=== PATIENT | female | born 2000 | race Caucasian/White ===

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

== ENCOUNTER 2020-08-26 14:36 | Emergency (ER) | payer OTHER, SELFPAY ==
[2020-08-26 15:05] VITALS: BP 131/91; PULSE 102; RESP 19; TEMP 37.1; O2SAT 99; BMI 43.5
--- NOTE | 2020-08-26 15:25 | HMH.EDUTC ---
[facility] [place] Clinical Impression: Sinusitis Qualifiers: Sinusitis location: unspecified location Chronicity: unspecified Qualified Code(s): J32.9 - Chronic sinusitis, unspecified Disposition: Home, Self-Care Condition on Discharge: Good Instructions: Sore Throat, Sinusitis, DI for Sinusitis, DI for Cough -- Adult, DI for COVID-19 (Suspected or Confirmed ), Preventing the Spread of Coronavirus Discharge Instructions Additional Instructions: *Monitor Temp, Over the counter Motrin or Tylenol as directed/as needed Tylenol every 4 hours and Motrin every 6 hours (as long as your family doctor has told you that you can take it) for fever or pain. and straight to ER if unable to lower temp less than 101.0 after medication given *Warm salt water gargles may help to soothe the throat *Throat Lozenges *Warm fluids like tea with honey may help to soothe the throat *Sleep elevated *Humidifier/Vaporizer *Flonase 2 sprays in each nostril daily but be aware that it may take 2-3 days before you notice improvement Follow up IMMEDIATELY for new or worsening symptoms or no Noticeable improvement over the next 48-72 hours. 911 for difficulty breathing or swallowing You were tested for today for COVID19 your test result should be back in the next 24-48 hours, you may call to the [facility] to see if your test results are back in the next 48 hours [phone] [facility] hours are 9am-9pm You was given a handout with instructions for Self Quarantine and Self isolation for while you wait on test results and what to do if they are positive If you are positive the Health Dept will be contacting you also Prescriptions: Benzonatate [Tessalon Perle 100mg Cap*] 100 mg PO TID PRN #30 cap PRN Reason: Cough Transmission Status: Received by [facility] Azithromycin [Z-Brodie 250mg Tab] 250 mg PO DIRECTED #6 tab Transmission Status: Received by [facility] Referrals: Owen Danielle MD [Primary Care Provider] - As needed Forms: Work/School Release Time of Disposition: 15:35 Medical Decision Making - Isaac Inquiry Pt receiving controlled substance: No Isaac was queried for this patient: No Vital Signs: 08/26/20 15:05 08/26/20 15:39 Temperature 98.8 F 98.8 F Temperature Source Oral Pulse Rate 102 H Pulse Rate [Right Brachial] 102 H Respiratory Rate 19 19 Blood Pressure 131/91 H Blood Pressure [Right Arm] 131/91 H Blood Pressure Mean [Right Arm] 104 Blood Pressure Source [Right Arm] Automatic Cuff Blood Pressure Position [Right Arm] Sitting 02 Sat by Pulse Oximetry 99 Oxygen Delivery Method Room Air Orders (Tests/Meds): ORDERS Category Date Time Status Covid-19 Nasal PCR ([facility]) Routine Lab 08/26/20 15:00 [place] [facility] [place] - General Stated complaint: covid symtoms Time Seen by Provider: 08/26/20 15:25 Mode of Arrival: Ambulatory Source of Information: Patient Limitations: No Limitations Description of Symptoms (Recalled from Triage Doc. by RN): PATIENT C/O FEVER, COUGH, HEADACHE, WEAKNESS, AND SOA SINCE TUESDAY HEENT Symptoms (Recalled from RN notes): Yes Resp Symptoms (Recalled from RN notes): Yes Skin Symptoms (Recalled from RN notes): No MS Symptoms (Recalled from RN notes): No Functional Status (Recalled from RN notes): WNL - History of Present Illness Provider Complaint: Patient states that she has not felt well for about 5 days and for the last couple of days it got worse States that she has been having sinus pressure, sore throat, cough, fever chills and body aches State that after episode of coughing she sometimes feels short of breath States that she was sent home from work yesterday due to symptoms and wanted to get tested for COVID - Related Data Home Medications Medication Instructions Recorded Confirmed bupropion HCl 300 mg 24 hr tablet, 300 mg PO [facility] 11/14/17 extended release Previous Rx's Medication Instructions Recorded Azithromycin [Z-Brodie 250mg Tab] 250 mg PO DIRECT
[2020-08-26 15:39] VITALS: BP 131/91; PULSE 102; RESP 19; TEMP 37.1; O2SAT 99
--- NOTE | 2020-08-27 10:17 | PC.NURSE ---
patient notified of positive covid results
== END 2020-08-26 15:45 | disposition home or self-care (01) ==
PROVIDERS: Emergency Provider Nurse Practitioner; PCP Internal Medicine Adolescent Medicine
DX: U07.1 COVID-19 (principal); J32.9 Chronic sinusitis, unspecified; F33.1 Major depressive disorder, recurrent, moderate; Z79.899 Other long term (current) drug therapy
CPT/HCPCS: 99202; G0463; U0003

== ENCOUNTER 2020-09-08 14:22 | Emergency (ER) | payer OTHER, SELFPAY ==
[2020-09-08 14:42] VITALS: BP 146/89; PULSE 89; RESP 18; TEMP 36.8; O2SAT 98; BMI 44.9
--- NOTE | 2020-09-08 15:00 | HMH.EDUTC ---
[facility] [place] Dis[place] Clinical Impression: Cough Disposition: Home, Self-Care Condition on Discharge: Good Instructions: Diarrhea, Acute Bronchitis, Cough, DI for COVID-19 (Suspected or Confirmed ) Additional Instructions: ? Continue antibiotic today. Be sure to complete entire prescription even if feeling better ? Monitor temp. Tylenol every 4 hours as needed and / or ibuprofen every 6 hours as needed ( As long as your primary care physician has told you that it ok to take both. For fever/aches/pains ER if no less than 101 despite Tylenol or Motrin ? Humidifier/vaporizer or hot steamy shower ? Inhaler every 4-6 hours as needed like we discussed. If unsure how to use it, ask pharmacist to demonstrate how. Should help open airways and improve cough, wheezing, and shortness of breath ? Mucinex during the day for your cough and cough suppressant only at night. Be sure to drink lots of water. Insurance may not cover a prescriptions for mucinex. Might be cheaper to get 400mg tablets and take 2 tablet in the morning, mid-day and evening with lots of water. Follow up IMMEDIATELY for new or worsening of symptoms OR no noticeable improvement over the next 48-72 hours. 911 immediately for any life threatening symptoms such as chest pain or difficulty breathing Referrals: Owen Danielle MD [Primary Care Provider] - As needed Forms: Work/School Release Time of Disposition: 15:10 Medical Decision Making - Isaac Inquiry Pt receiving controlled substance: No Isaac was queried for this patient: No Vital Signs: 09/08/20 14:42 09/08/20 15:11 Temperature 98.2 F 98.2 F Temperature Source Oral Oral Pulse Rate 89 Pulse Rate [Right Brachial] 89 Respiratory Rate 18 18 Blood Pressure 146/89 H Blood Pressure [Right Arm] 146/89 H Blood Pressure Mean [Right Arm] 108 Blood Pressure Source Automatic Cuff Blood Pressure Source [Right Arm] Automatic Cuff Blood Pressure Position Sitting Blood Pressure Position [Right Arm] Sitting 02 Sat by Pulse Oximetry 98 Oxygen Delivery Method Room Air Room Air Medical Decision Narrative: Patient states that she is feeling much better after dx with COVID states that she tried going back to work today but thinks she needs a couple more days off State that she got a little winded while walking around and it made her cough States that she is being treated at this time for bronchitis and was given inhaler and zpack which she is currently taking and feeling better since starting States that work sent her home and told her she had to get a work note so she came in to get a work note State that she is also still having some diarrhea off and on with cramping but that is better now too [facility] [place] HPI - General Stated complaint: covid +, soa, congestion Time Seen by Provider: 09/08/20 15:00 Source of Information: Patient Limitations: No Limitations Description of Symptoms (Recalled from Triage Doc. by RN): PT TESTED POSITIVE FOR COVID 14 DAYS AGO. SUPPOSE TO GO BACK TO WORK TOMORROW BUT STILL HAVING SYMPTOMS' SOA, CHEST PAIN, ABDOMINAL PAIN. HEENT Symptoms (Recalled from RN notes): No Resp Symptoms (Recalled from RN notes): Yes Skin Symptoms (Recalled from RN notes): No MS Symptoms (Recalled from RN notes): No Functional Status (Recalled from RN notes): WNL - History of Present Illness Provider Complaint: Patient states that she recently was +COVID states that she was seen by Dr Stokes office last week and given inhaler and zpack States that she went back to work today and she started coughing so they made her leave work and told her she needed a note States that she is feeling better but still has that burning at times in her throat and chest when she coughs and gets winded when she is up moving around alot States that she thinks she should have waited a couple more days before going back - Related Data Home Medications Medication Instructions Recorded Confirmed bupropion HCl 300 mg 24 hr tablet, 300 mg PO
[2020-09-08 15:11] VITALS: BP 146/89; PULSE 89; RESP 18; TEMP 36.8; O2SAT 98
== END 2020-09-08 15:15 | disposition home or self-care (01) ==
PROVIDERS: Emergency Provider Nurse Practitioner; PCP Internal Medicine Adolescent Medicine
DX: R05 Cough (principal); Z86.16 Personal history of COVID-19
CPT/HCPCS: 99202; G0463

== ENCOUNTER 2021-03-02 11:56 | Emergency (ER) | payer OTHER, SELFPAY ==
[2021-03-02 11:57] VITALS: BP 162/98; PULSE 94; RESP 16; TEMP 36.7; O2SAT 97; BMI 45.1
--- NOTE | 2021-03-02 12:50 | HMH.EDUTC ---
[facility] – [place] Disposition Clinical Impression: UTI (urinary tract infection) Qualifiers: Urinary tract infection type: site unspecified Hematuria presence: with hematuria Qualified Code(s): N39.0 - Urinary tract infection, site not specified Disposition: Home, Self-Care Condition on Discharge: Good Instructions: Urinary Tract Infection, Urine Culture, DI for Urinary Tract Infection (UTI), Phenazopyridine Additional Instructions: Drink plenty of fluids. Take tylenol or ibuprofen for pain or fever. Take the medications as directed. Follow up with your regular doctor. GO TO THE ER FOR ANY WORSENING SYMPTOMS The pyridium will make your urine turn orange, this is an expected side effect. It will stain your clothes if it comes into contact with them. Prescriptions: Ondansetron [Zofran 4mg ODT] 4 mg PO Q8HP PRN #12 tab PRN Reason: Nausea Transmission Status: Received by [facility] Sulfamethoxazole/Trimethoprim [Bactrim DS tablet] 1 each PO BID 7 Days #14 tab Transmission Status: Received by [facility] Fluconazole [Diflucan 150mg tab] 150 mg PO ONCE #1 tab Transmission Status: Received by [facility] Phenazopyridine HCl [Pyridium 200mg Tablet] 200 pow PO TID #6 tab Transmission Status: Received by [facility] Referrals: Owen Danielle MD [Primary Care Provider] - Forms: Work/School Release Time of Disposition: 12:55 Medical Decision Making - Medical Records Medical records reviewed: No: I reviewed the patient's medical records. - Isaac Inquiry Pt receiving controlled substance: No Vital Signs: 03/02/21 11:57 03/02/21 13:04 Temperature 98.1 F 98.2 F Temperature Source Oral Oral Pulse Rate 90 Pulse Rate [Right] 94 H Respiratory Rate 16 16 Blood Pressure 158/74 H Blood Pressure [Right Arm] 162/98 H Blood Pressure Mean [Right Arm] 119 Blood Pressure Source Automatic Cuff Blood Pressure Source [Right Arm] Automatic Cuff Blood Pressure Position Sitting Blood Pressure Position [Right Arm] Sitting 02 Sat by Pulse Oximetry 97 Oxygen Delivery Method Room Air Room Air - Lab Data Lab results reviewed: Yes: I reviewed the patient's lab results. Lab Results 03/02/21 12:40: Urine Color Yellow, Urine Appearance Clear, Urine pH 6.0, Ur Specific [place] 1.025, Urine Protein Negative, Urine Glucose (UA) Negative, Urine Ketones Negative, Urine Blood 3+, Urine Nitrate Negative, Urine Bilirubin Negative, Urine Urobilinogen 0.2, Ur Leukocyte Esterase 1+ A Orders (Tests/Meds): ORDERS Category Date Time Status Urine Culture Stat Micro 03/02/21 12:20 Received [facility] [place] HPI - General Stated complaint: possible uti Time Seen by Provider: 03/02/21 12:51 Mode of Arrival: Ambulatory Source of Information: Patient Limitations: No Limitations Description of Symptoms (Recalled from Triage Doc. by RN): pt advises she thinks she has a UTI. Advises she had burning and pain that started Tuesday HEENT Symptoms (Recalled from RN notes): No Resp Symptoms (Recalled from RN notes): No Skin Symptoms (Recalled from RN notes): No MS Symptoms (Recalled from RN notes): No Functional Status (Recalled from RN notes): na - History of Present Illness Provider Complaint: She states that for the past 2 days, she has had low back pain, burning with urination and urinary urgency and frequency. She denies any fever, but she has had some chills. She does get uti's occasionally and that is what she feels like is happening now. - Related Data Home Medications Medication Instructions Recorded Confirmed bupropion HCl 300 mg 24 hr tablet, 300 mg PO QA 11/14/17 extended release Previous Rx's Medication Instructions Recorded Azithromycin [Z-Brodie 250mg Tab] 250 mg PO DIRECTED #6 tab 08/26/20 Benzonatate [Tessalon Perle 100mg 100 mg PO TID PRN #30 cap 08/26/20 Cap*] Fluconazole [Diflucan 150mg tab] 150 mg PO ONCE #1 tab 03/02/21 Ondansetron [Zofran 4mg OD
[2021-03-02 13:04] VITALS: BP 158/74; PULSE 90; RESP 16; TEMP 36.8; O2SAT 98
[2021-03-02 17:59] LABS: Apearance,Urine Clear (Clear); Bilirubin,Urine Negative (Negative); Blood, Urine 3+ (Negative); Color,Urine Yellow (Yellow); Glucose,Urine (UA) Negative (Negative); Ketones,Urine Negative (Negative); Protein,Urine Negative (Negative); Specific Gravity, Urine 1.025 (1.005-1.030); UTC Leukocyte Esterase,Urine 1+ (Negative); UTC Nitrate,Urine Negative (Negative); Urobilinogen,Urine 0.2 EU/dl (0.2)
== END 2021-03-02 13:06 | disposition home or self-care (01) ==
PROVIDERS: Emergency Provider Nurse Practitioner Family; PCP Internal Medicine Adolescent Medicine
DX: N39.0 Urinary tract infection, site not specified (principal); F33.1 Major depressive disorder, recurrent, moderate
CPT/HCPCS: 81003; 87086; 87088; 87186; 99202; G0463

== ENCOUNTER 2021-05-26 17:58 | Emergency (ER) | payer OTHER, SELFPAY ==
[2021-05-26 19:16] VITALS: BP 141/86; PULSE 77; RESP 19; TEMP 36.8; O2SAT 98; BMI 46.3
--- NOTE | 2021-05-26 19:32 | HMH.EDUTC ---
[facility] [place] Dis[place] Clinical Impression: Otitis externa Qualifiers: Otitis externa type: unspecified type Chronicity: unspecified Laterality: left Qualified Code(s): H60.92 - Unspecified otitis externa, left ear Disposition: Home, Self-Care Condition on Discharge: Good Instructions: Otitis Externa, DI for Otitis Externa, Ofloxacin Otic Additional Instructions: Use drops as prescribed Follow up with Family Doctor if needed Straight to ER if any life threatening symptoms Return if needed Over the counter Mortin and/or Tylenol for fever and pain Prescriptions: Ofloxacin [Floxin 0.3% OTIC Solution 5mL] 5 drops EAR-LEFT BID 7 Days #5 ml Transmission Status: Pending to [id number] Referrals: Owen Danielle MD [Primary Care Provider] - As needed Time of Disposition: 19:39 Medical Decision Making - Isaac Inquiry Pt receiving controlled substance: No Isaac was queried for this patient: No Vital Signs: 05/26/21 19:16 Temperature 98.3 F Temperature Source Oral Pulse Rate [Left Brachial] 77 Respiratory Rate 19 Blood Pressure [Left Arm] 141/86 H Blood Pressure Mean [Left Arm] 104 Blood Pressure Source [Left Arm] Automatic Cuff Blood Pressure Position [Left Arm] Sitting 02 Sat by Pulse Oximetry 98 Oxygen Delivery Method Room Air Medical Decision Narrative: Patient states that she has taken Ofloxacin before without complication or reactions [facility] [place] HPI - General Stated complaint: Left ear pain Time Seen by Provider: 05/26/21 19:32 Mode of Arrival: Ambulatory Source of Information: Patient Limitations: No Limitations Description of Symptoms (Recalled from Triage Doc. by RN): C/O left earache since last night HEENT Symptoms (Recalled from RN notes): Yes (rt ear pain) Resp Symptoms (Recalled from RN notes): No Skin Symptoms (Recalled from RN notes): No MS Symptoms (Recalled from RN notes): No Functional Status (Recalled from RN notes): n/a - History of Present Illness Provider Complaint: Patient states that she got some water in her left ear several days ago and now she feels like she may have swimmers ear again and having pain so she came in to get it checked - Related Data Previous Rx's Medication Instructions Recorded norgestimate 0.25 mg-ethinyl 1 tab PO DAILY #28 tab 05/14/21 estradiol 35 mcg tablet Ofloxacin [Floxin 0.3% OTIC 5 drops EAR-LEFT BID 7 Days #5 ml 05/26/21 Solution 5mL] Allergies Allergy/AdvReac Type Severity Reaction Status Date / Time neomycin [NEOMYCIN] Allergy Unknown Verified 05/14/21 10:03 polymyxin B [POLYMYXIN B] Allergy Unknown Verified 05/14/21 10:03 colistin Allergy Verified 05/14/21 10:03 [From Cortisporin-TC] hydrocortisone Allergy Verified 05/14/21 10:03 [From Cortisporin-TC] Penicillins Allergy Verified 05/14/21 10:03 thonzonium bromide Allergy Verified 05/14/21 10:03 [From Cortisporin-TC] - Worker's Comp Is this a Worker's Comp case?: No [facility] History - Hepatitis A Screen Drug use history?: No High risk sexual behaviors?: No History of sexually transmitted infection?: No Currently employed?: No Childcare worker?: No Do you have indoor plumbing?: Yes Do you have electricity?: Yes Attestation statement:: This patient has been screened for Hepatitis A risk factors. I have reviewed the patient's past medical history: Yes Medical History: Reports:: Depression Denies:: Anxiety, Asthma, Chronic Obstructive Pulmonary Disease (COPD), Diabetes Mellitus Type 1, Diabetes Mellitus Type 2, Hyperlipidemia, Hypertension Laterality Cases: Bilateral: Myringotomy (Ear Tubes), Tonsillectomy Other Surgeries: Yes: No Previous Surgery Amputation: No Fractures: No - Social History Smoking Status: Never smoker Alcohol Intake: never Alcohol Intake Frequency:: other Substance Use Type: denies use Occupational Status: employed - Psychiatric History Pschychiatric History:: Reports:: Depression Denies:: Anxiety Family Hx:: Cancer R
[2021-05-26 19:45] VITALS: BP 141/86; PULSE 77; RESP 19; TEMP 36.8; O2SAT 98
== END 2021-05-26 19:45 | disposition home or self-care (01) ==
PROVIDERS: Emergency Provider Nurse Practitioner; PCP Internal Medicine Adolescent Medicine
DX: H60.92 Unspecified otitis externa, left ear (principal); F33.1 Major depressive disorder, recurrent, moderate
CPT/HCPCS: 99202; G0463

== ENCOUNTER 2022-10-05 17:30 | Emergency (ER) | payer OTHER, SELFPAY ==
[2022-10-05 17:32] VITALS: BP 188/108; PULSE 114; RESP 18; TEMP 36.8; O2SAT 100; BMI 51.5
--- NOTE | 2022-10-05 17:38 | CT_ITS ---
PROCEDURE INFORMATION: Exam: CT Abdomen And Pelvis With Contrast Exam date and time: 10/05/2022 6:57 PM Age: 22 years old Clinical indication: Abdominal pain; Localized; Patient HX: Lt umbilical region pain x 4 hours w slight nausea. TECHNIQUE: Imaging protocol: Computed tomography of the abdomen and pelvis with contrast. Total images: 370 Radiation optimization: All CT scans at this facility use at least one of these dose optimization techniques: automated exposure control; mA and/or kV adjustment per patient size (includes targeted exams where dose is matched to clinical indication); or iterative reconstruction. Contrast material: ISOVUE; Contrast volume: 370 ml; Contrast route: IV; REPORTING DATA: Count of CT and Cardiac NM exams in prior 12 months: This patient has received 0 known CTs and 0 known cardiac nuclear medicine studies in the 12 months prior to the current study. COMPARISON: No relevant prior studies available. FINDINGS: Lungs: 13 mm calcified left lower lobe granuloma/hamartoma. Lung bases are otherwise clear. Heart: Normal heart size. Liver: Mild hepatomegaly. Normal liver contour and attenuation. No mass. Gallbladder and bile ducts: Normal. No calcified stones. No ductal dilation. Pancreas: 18 mm isodense nodule slightly peripheral to the pancreatic head, axial image 49, resembles adjacent pancreatic tissue. Spleen: Nonenlarged spleen with adjacent accessory splenule. Adrenal glands: Normal. No mass. Kidneys and ureters: Unremarkable right kidney. 4 mm nonobstructing upper pole left renal calculus. 17 mm upper pole left renal cyst. No hydronephrosis or perinephric fluid. No ureteral stones. Stomach and bowel: Unremarkable stomach and duodenum. No ileus or bowel obstruction. Small bowel is within normal limits. Unremarkable colon and rectum. Appendix: No evidence for appendicitis. Intraperitoneal space: Hazy density at the mesenteric root extending to the pancreas. No ascites. No free air. Vasculature: Right pelvic phleboliths. Abdominal aorta is normal in caliber. Major abdominal vessels enhance appropriately. Lymph nodes: Mildly prominent bilateral inguinal lymph nodes most likely reactive/postinflammatory. Scattered mildly prominent mesenteric root lymph nodes. Urinary bladder: Unremarkable as visualized. Reproductive: Physiologic uterus and ovaries. Bones/joints: No acute osseous abnormality. Mild degenerative changes bilateral SI joints. Straightened lumbar lordosis. Mild degenerative changes thoracic spine. Soft tissues: Focal diastasis of the rectus fascia at the umbilicus. Tiny fat containing umbilical hernia. IMPRESSION: 1. Mild hazy opacity at the mesenteric root may reflect acute mesenteric panniculitis. Cannot exclude coexisting pancreatitis. Please correlate with lipase. 2. Prominent mesenteric root lymph nodes implying mesenteric adenitis. 3. 4 mm nonobstructing left renal calculus. 4. 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 5. 13 mm benign calcified left lower lobe granuloma/hamartoma. COMMENTS: Consistent with the [employer]'s Incidental Findings Committee white paper (J Am Mario Radiol 2018): Any incidental renal lesion less than 1 cm or classified as too small to characterize, or any incidental cystic renal lesion characterized as simple-appearing, is likely benign. No follow-up imaging is recommended for these lesions per consensus recommendations based on imaging criteria.
[2022-10-05 17:40] VITALS: BP 188/108; PULSE 106; O2SAT 100
--- NOTE | 2022-10-05 17:50 | HMH.EDGENADL ---
Discharge Plan Disposition Patient Disposition: Home, Self-Care Prescriptions Prescriptions: New oxycodone 5 mg tablet 5 mg PO Q8H PRN (Reason: pain) Qty: 6 0RF ondansetron 4 mg tablet,disintegrating 4 mg PO Q8H PRN (Reason: Nausea) Qty: 15 0RF No Action norgestimate-ethinyl estradiol [Sprintec (28)] 0.25-35 mg-mcg tablet 1 tab PO DAILY Referrals Follow up/Referrals: Owen Danielle MD [Primary Care Provider] - See instructions Activity Restrictions/Add. Instructions Additional Instructions/Restrictions: Take ibuprofen every 8 hours 400 mg for pain follow-up with your primary care physician within the next few days for reexamination. Return the emergency department for worsening pain vomiting or any other concerns within the next 8 hours Clinical Impressions Clinical Impression: Panniculitis Instructions Patient Instructions: DI for Acute Abdominal Pain Discharge ED Provider: Maynor Lepe General Adult HPI General Chief complaint: Abdominal Pain Stated complaint: abd pain, nausea Time Seen by Provider: 10/05/22 17:30 Mode of Arrival: Ambulatory Source of Information: Patient Limitations: No Limitations Description of Symptoms (Recalled from ER Triage Doc. by RN): 22 F presents from home with acute LUQ abdominal pain that began around 11 AM this date. Patient took antacid around this time without relief of symptoms. Patient also reports nausea, but denies fever, chills, vomiting, or chest pain. History of Present Illness HPI narrative: 22-year-old female with history of PCOS presents with left upper quadrant pain for 1 day that began around 11 AM. She took an antacid but it did get better pain is constant dull nonradiating. No dysuria or hematuria. Recently had. 3 days ago. She reports nausea but denies fever chills vomiting chest pain no headache. Pain is not associated with eating Related Data Home Medications Medication Instructions Recorded Confirmed norgestimate 0.25 mg-ethinyl 1 tab PO DAILY control 10/05/22 10/05/22 estradiol 35 mcg tablet (Sprintec (28)) Previous Rx's Medication Instructions Recorded ondansetron 4 mg disintegrating 4 mg PO Q8H PRN Nausea #15 tabs 10/05/22 tablet oxycodone 5 mg tablet 5 mg PO Q8H PRN pain #6 tabs 10/05/22 Allergies Allergy/AdvReac Type Severity Reaction Status Date / Time neomycin [NEOMYCIN] Allergy Unknown Verified 08/10/21 08:36 polymyxin B [POLYMYXIN B] Allergy Unknown Verified 08/10/21 08:36 colistin Allergy Verified 08/10/21 08:36 [From Cortisporin-TC] hydrocortisone Allergy Verified 08/10/21 08:36 [From Cortisporin-TC] Penicillins Allergy Verified 08/10/21 08:36 thonzonium bromide Allergy Verified 08/10/21 08:36 [From Cortisporin-TC] [facility] Disclaimer: The information contained in this section may have been updated after the patient was seen, as this information can be updated by other users. Social History Smoking Status: Never smoker alcohol intake: never substance use type: denies use current occupational status: employed Travel in the last 8 weeks: None ROS Obtained: Yes All systems reviewed & no additional complaints except as documented Constitutional Constitutional: Denies fatigue and Denies headache(s) Eyes Eyes: Denies dry eyes ENT Ears, Nose, Mouth, and Throat: Denies headache(s) Cardiovascular Cardiovascular: Denies dyspnea Respiratory Respiratory: Denies dyspnea and Denies wheezing Gastrointestinal Gastrointestingal: Denies coffee ground emesis Genitourinary Female Genitourinary: Denies hematuria Musculoskeletal Musculoskeletal: Denies joint stiffness Integumentary/Breasts Skin/Breast: Denies rash Neurologic Neurologic: Denies headache(s) Endocrine Endocrine: Denies fatigue Hematologic/Lymphatic Henatologic/Lymphatic: Denies easy bruising Allergic/Immunologic Allergic/Immunologic: Denies wheezing Physical Exam General General appeara
[2022-10-05 17:58] LABS: Microscopic, Urine URINE MICROSCOPIC (MICROSCOPIC)
[2022-10-05 18:01] LABS: Appearance,Urine CLEAR (Clear); Bilirubin,Urine Negative (Negative); Blood, Urine Negative (Negative); Color,Urine YELLOW (Yellow); Glucose,Urine (UA) Negative (Negative); Ketones,Urine Negative (Negative); Leukocyte Esterase,Urine Negative (Negative); Nitrate,Urine Negative (Negative); Protein,Urine TRACE (Negative); Specific Gravity, Urine 1.025 (1.005-1.030); Urobilinogen,Urine 0.2 EU/dl (0.2)
[2022-10-05 18:10] LABS: Chloride 95 mmol/L (98-107); Potassium 3.7 mmoL/L (3.5-5.1); Sodium 138 mmol/L (136-145)
[2022-10-05 18:11] LABS: Basophils # 0.1 K/mm3 (0-0.2); Basophils % 0.6 % (0.1-2.0); Eosinophils # 0.1 K/mm3 (0.0-0.4); Eosinophils % 0.5 % (0.1-12.0); Hemoglobin 13.3 g/dL (12.2-16.2); Lymphocytes # 2.1 K/mm3 (0.7-4.5); Lymphocytes % 11.9 % (10-50); Mean Corpuscular HGB Conc 31.6 g/dL (31.8-35.4); Mean Corpuscular Hemoglobin 23.8 pg (27.0-31.2); Mean Corpuscular Volume 75.2 fl (81-99); Mean Platelet Volume 7.9 fl (7.4-10.4); Monocytes # 0.6 K/mm3 (0.1-1.0); Monocytes % 3.3 % (1.7-9.3); Neutrophils # 14.9 K/mm3 (1.8-7.8); Neutrophils % 83.6 % (37.0-80.0); Platelet Count 409 K/mm3 (142-424); Red Blood Count 5.58 M/mm3 (4.20-5.40); Red Cell Distribution Width 15.8 % (11.5-17.5); White Blood Count 17.8 K/mm3 (4.8-10.8)
[2022-10-05 18:12] LABS: Alanine Aminotransferase 41 U/L (12-78); Aspartate Amino Transferase 38 U/L (14-36); Blood Urea Nitrogen 11 mg/dl (7-17); Creatinine Clearance Estimated 130 mL/min (50-200); Estimated Glomerular Filt Rate 123 ml/min (>60); GFR (African American) 149 ML/MIN (>60)
[2022-10-05 18:13] LABS: Albumin Level 4.5 g/dl (3.5-5.0); Albumin/Globulin Ratio 1.2 (1.1-1.8); Alkaline Phosphatase 72 U/L (38-126); Anion Gap 18.7 mEq/L (5-15); Bilirubin,Total 0.2 mg/dl (0.2-1.3); Calcium 9.6 mg/dl (8.4-10.2); Carbon Dioxide 28 mmol/L (22.0-30.0); Globulin 3.7 g/dL (1.3-3.2); Glucose 103 mg/dl (74-100); Lipase 50 U/L (23-300); Total Protein,Serum 8.2 g/dl (6.3-8.2)
[2022-10-05 18:14] LABS: MANUAL DIFFERENTIAL MANUAL DIFFERENTIAL (MANUAL DIFF)
[2022-10-05 18:19] LABS: Bacteria,Urine Trace /lpf; RBC,Urine Occasional #/hpf (0-3); WBC,Urine Occasional #/hpf (0-3)
[2022-10-05 18:40] LABS: Eosinophils % 5 % (0-3); Lymphocytes % 9 % (10-50); Monocytes % 3 % (2-9); Neutrophils % 82 % (42-76); Total Cells Counted 100
[2022-10-05 18:41] LABS: Anisocytosis 1+; Platelet Estimate Slight Increase; Poikilocytosis 1+
[2022-10-05 18:42] LABS: Polychromasia 1+
[2022-10-05 20:01] VITALS: BP 165/80; PULSE 81; RESP 17; TEMP 36.8; O2SAT 99
[2022-10-05 20:02] LABS: Lactic Acid 2.2 mmol/L (0.7-2.1)
[2022-10-05 23:58] LABS: HCG Qualitative, Serum Negative (Negative)
== END 2022-10-05 20:01 | disposition home or self-care (01) ==
PROVIDERS: Emergency Provider Emergency Medicine; PCP Internal Medicine Adolescent Medicine
DX: R10.12 Left upper quadrant pain (principal); M79.3 Panniculitis, unspecified; E28.2 Polycystic ovarian syndrome
CPT/HCPCS: 36415; 74177; 80053; 81001; 83605; 83690; 84703; 85007; 85025; 96361; 96374; 99285; Q9967

== ENCOUNTER 2023-10-21 08:06 | Emergency (ER) | payer SELFPAY ==
--- NOTE | 2023-10-21 08:19 | ED_ITS ---
Discharge Plan Disposition Patient Disposition: Home, Self-Care Condition: Good Prescriptions Prescriptions: New azithromycin [Zithromax Z-Brodie] 250 mg tablet See Rx Instructions .ROUTE .COMPLEX Qty: 6 0RF Rx Instructions: For 250 mg dose pack: take 500 mg today (day 1), then 250 mg for 4 days (days 2-5) lbkrhwzjvvqmsvj-dwglwotfb-DE [Bromfed DM] 2-30-10 mg/5 mL syrup 5 - 10 ml PO Q4H PRN (Reason: Cough) Qty: 240 0RF albuterol sulfate [Ventolin HFA] 90 mcg/actuation HFA aerosol inhaler 2 puff inhalation QIDP PRN (Reason: Wheezing) Qty: 1 0RF No Action norgestimate-ethinyl estradiol [Sprintec (28)] 0.25-35 mg-mcg tablet 1 tab PO DAILY Referrals Follow up/Referrals: Owen Danielle MD [Primary Care Provider] - See instructions Activity Restrictions/Add. Instructions Additional Instructions/Restrictions: Rest, fluids Clinical Impressions Clinical Impression: Sinusitis Stand Alone Forms Stand Alone Forms: Work/School Release Instructions Patient Instructions: DI for Sinusitis Discharge ED Provider: Frances Boyle [facility] [place] HPI General Stated complaint: cough, SOA, runny nose, Pain while breathing Time Seen by Provider: 10/21/23 08:31 History of Present Illness Provider Complaint: Sore throat, cough X 4 days. Sore throat getting worse. Denies ear pain. Cough mostly non productive. No vomiting or diarrhea. No rash. No fever. Onset (ago): day(s) (4) Relieving factors: none Exacerbating factors: none Associated symptoms: cough and shortness of breath Treatments prior to arrival: none Related Data Home Medications Medication Instructions Recorded Confirmed norgestimate 0.25 mg-ethinyl 1 tab PO DAILY control 10/05/22 10/21/23 estradiol 35 mcg tablet (Sprintec (28)) Previous Rx's Medication Instructions Recorded albuterol sulfate 90 mcg/actuation 2 puff inhalation QIDP PRN 10/21/23 aerosol inhaler (Ventolin HFA) Wheezing #1 ea azithromycin 250 mg tablet See Rx Instructions PO .COMPLEX #6 10/21/23 (Zithromax Z-Brodie) tabs gtbhgxwfxagnwly-gblzinexxpswbmh-EI 5 - 10 ml PO Q4H PRN Cough #240 mL 10/21/23 2 mg-30 mg-10 mg/5 mL oral syrup (Bromfed DM) Allergies Allergy/AdvReac Type Severity Reaction Status Date / Time neomycin [NEOMYCIN] Allergy Unknown Verified 08/10/21 08:36 polymyxin B [POLYMYXIN B] Allergy Unknown Verified 08/10/21 08:36 colistin Allergy Verified 08/10/21 08:36 [From Cortisporin-TC] hydrocortisone Allergy Verified 08/10/21 08:36 [From Cortisporin-TC] Penicillins Allergy Verified 08/10/21 08:36 thonzonium bromide Allergy Verified 08/10/21 08:36 [From Cortisporin-TC] [facility] Disclaimer: The information contained in this section may have been updated after the patient was seen, as this information can be updated by other users. Social History Smoking Status: Never smoker alcohol intake: never substance use type: denies use current occupational status: employed Travel in the last 8 weeks: None ROS Obtained: Yes All systems reviewed & no additional complaints except as documented ENT Ears, Nose, Mouth, and Throat: Reports sore throat Cardiovascular Cardiovascular: Reports dyspnea Respiratory Respiratory: Reports dyspnea Physical Exam General General appearance: alert and in no apparent distress Head Head exam: atraumatic, normocephalic and normal inspection Eye Eye exam: Present normal appearance, PERRL and EOMI ENT ENT exam: Present normal exam, normal oropharynx, mucous membranes moist and normal external ear exam Expanded ENT Exam TM/Canal exam: Bilateral TM: effusion (scarring) Nose exam: Present sinus tenderness Throat exam: Present tonsillar erythema and other (PND) Neck Neck exam: Present normal inspection, full ROM and trachea midline; Absent meningismus or lymphadenopathy Chest Chest inspection: Present normal inspection and symmetric chest wall rise; Absent tenderness Respiratory Respiratory exam: Present normal lung sounds bilaterally; Absent respiratory distress Cardiovascular Cardiovascular exam: Present regular rate and normal rhythm; Absent JVD Abdominal Exam Abdominal exam: Present soft and normal bowel sounds; Absent distention, tenderness or guarding Extremities Exam Extremities exam: Present normal inspection, full ROM and normal capillary refill; Absent calf tenderness Back Exam Back exam: Present normal inspection; Absent tenderness Neurological Exam Neurological exam: Present alert and oriented X3 Psychiatric Psychiatric exam: Present normal affect and normal mood Skin Skin exam: Present warm, dry, intact and normal color Lymphatic Lymphatic Findings: no adenopathy Medical Decision Making Isaac Inquiry Pt receiving controlled substance: No Lab Data Lab results reviewed: Yes I reviewed the patient's lab results.
[2023-10-21 08:20] VITALS: BP 161/89; PULSE 109; RESP 20; TEMP 36.8; O2SAT 96; BMI 54.1
[2023-10-21 08:45] LABS: UTC Strep Screen (Rapid) Negative (Negative)
[2023-10-21 08:46] VITALS: BP 161/89; PULSE 109; RESP 20; TEMP 36.8; O2SAT 96
== END 2023-10-21 08:49 | disposition home or self-care (01) ==
PROVIDERS: Emergency Provider Physician Assistant; PCP Internal Medicine Adolescent Medicine
DX: J01.90 Acute sinusitis, unspecified (principal); R07.0 Pain in throat; R05.9 Cough, unspecified
CPT/HCPCS: 87880; 99212; 99214; G0463

== ENCOUNTER 2024-12-31 14:53 | Outpatient (CLI) | payer OTHER, SELFPAY ==
[2024-12-31 15:13] LABS: Hematocrit 38.5 % (37.0-47.0); Hemoglobin 11.8 g/dL (12.2-16.2); Immature Granulocytes % 0.3 %; Mean Corpuscular HGB Conc 30.6 g/dL (31.8-35.4); Mean Corpuscular Hemoglobin 22.3 pg (27.0-31.2); Mean Corpuscular Volume 72.6 fl (81-99); Nucleated Red Blood Cells % 0 %; Platelet Count 395 K/mm3 (142-424); Red Blood Count 5.30 M/mm3 (4.20-5.40); Red Cell Distribution Width-SD 39.8 fL; White Blood Count 11.3 K/mm3 (4.8-10.8)
--- NOTE | 2024-12-31 15:19 | XR_ITS ---
FINAL REPORT CLINICAL HISTORY: HIP PAIN COMPARISON: None FINDINGS: LEFT HIP: Two views of the left hip with an AP view of the pelvis demonstrate no acute fracture or dislocation. The joint spaces appear normal. The visualized bony structures are well aligned. No soft tissue abnormality is seen. IMPRESSION: No acute bony abnormality. Reviewed, Interpreted and Dictated by Brandon Rebollar MD Transcribed by Gisselle Arevalo Authenticated and [facility]
--- NOTE | 2024-12-31 15:19 | XR_ITS ---
FINAL REPORT CLINICAL HISTORY: . COMPARISON: None FINDINGS: RIGHT HIP Two views of the right hip demonstrate no acute fracture or dislocation. The joint spaces appear normal. The visualized bony structures are well aligned. No soft tissue abnormality is seen. IMPRESSION: No acute bony abnormality. Reviewed, Interpreted and Dictated by Brandon Rebollar MD Transcribed by Gisselle Arevalo Authenticated and [facility]
[2024-12-31 16:10] LABS: Albumin Level 4.4 g/dl (3.5-5.0); Chloride 103 mmol/L (98-107); Sodium 138 mmol/L (136-145)
[2024-12-31 16:11] LABS: Potassium 4.0 mmoL/L (3.5-5.1)
[2024-12-31 16:13] LABS: Alanine Aminotransferase 29 U/L (12-78); Albumin/Globulin Ratio 1.4 (1.1-1.8); Alkaline Phosphatase 80 U/L (38-126); Anion Gap 13.0 mEq/L (5-15); Aspartate Amino Transferase 30 U/L (14-36); Bilirubin,Total 0.7 mg/dl (0.2-1.3); Blood Urea Nitrogen 12 mg/dl (7-17); Carbon Dioxide 26 mmol/L (22.0-30.0); Cholesterol 176 mg/dl (140-200); Creatinine,Serum 0.80 mg/dl (0.52-1.04); Estimated Glomerular Filt Rate 87 ml/min (>60); GFR (African American) 105 ML/MIN (>60); Globulin 3.1 g/dL (1.3-3.2); Total Protein,Serum 7.5 g/dl (6.3-8.2); Triglycerides 93 mg/dl (30-150)
[2024-12-31 16:14] LABS: Calcium 9.0 mg/dl (8.4-10.2); Glucose 111 mg/dl (74-100); HDL Cholesterol 51 mg/dl (40-60)
[2024-12-31 16:15] LABS: Hemoglobin A1C 6.1 % (4.0-6.0)
[2024-12-31 16:26] LABS: Free T4 (Free Thyroxine) 1.47 ng/dl (0.78-2.19)
[2024-12-31 16:41] LABS: Thyroid Stimulating Hormone 2.34 uIU/mL (0.465-4.68)
[2025-01-01 04:08] LABS: Insulin Level Total 83.1 uIU/mL (2.6-24.9)
[2025-01-01 09:00] LABS: Testosterone,Total 78 ng/dL (13-71)
== END 2024-12-31 23:59 | disposition home or self-care (01) ==
LOC: RAD 14:54
PROVIDERS: PCP Nurse Practitioner Family; Visit Provider Nurse Practitioner Family
DX: M25.552 Pain in left hip (principal); E28.2 Polycystic ovarian syndrome; E66.01 Morbid (severe) obesity due to excess calories; R03.0 Elevated blood-pressure reading, without diagnosis of hypertension; Z68.43 Body mass index [BMI] 50.0-59.9, adult
CPT/HCPCS: 36415; 73502; 80053; 80061; 83036; 83525; 84402; 84403; 84439; 84443; 85025

== ENCOUNTER 2025-01-18 18:29 | Emergency (ER) | payer OTHER, SELFPAY ==
[2025-01-18 18:42] VITALS: BP 193/117; PULSE 100; RESP 18; TEMP 36.8; O2SAT 99; BMI 52.7
--- NOTE | 2025-01-18 18:49 | XR_ITS ---
PROCEDURE INFORMATION: Exam: XR Chest Exam date and time: 01/18/2025 8:09 PM Age: 24 years old Clinical indication: Other: Chest pressure, high blood pressure TECHNIQUE: Imaging protocol: Radiologic exam of the chest. Views: 1 view. COMPARISON: CT ABDOMEN PELVIS W CON 10/05/2022 6:57 PM FINDINGS: Lungs: Normal pulmonary expansion. Pulmonary vasculature grossly normal. No gross pulmonary infiltrates or edema pattern. Pleural spaces: No pleural effusion. No pneumothorax. Heart/Mediastinum: Heart size normal. No tracheal/mediastinal shift. Bones/joints: No acute osseous abnormalities are identified. IMPRESSION: No acute thoracic process.
--- NOTE | 2025-01-18 18:52 | ECG_ITS ---
APPROVED REPORT Exam: Resting ECG HR:102 bpm ECG Measurements Heart Rate 102 AXES ND 198 P 51 QRSd 118 QRS 13 QT 341 T 30 QTc 399 Conclusion SINUS TACHYCARDIA MODERATE INTRAVENTRICULAR CONDUCTION DELAY [110+ ms QRS DURATION] ABNORMAL RHYTHM ECG UNCONFIRMED REPORT Electronically signed by : Manuel Saldivar, 01/18/2025 23:27:50
[2025-01-18 19:07] LABS: Hematocrit 39.9 % (37.0-47.0); Hemoglobin 12.0 g/dL (12.2-16.2); Immature Granulocytes % 0.3 %; Mean Corpuscular HGB Conc 30.1 g/dL (31.8-35.4); Mean Corpuscular Hemoglobin 22.2 pg (27.0-31.2); Mean Corpuscular Volume 73.8 fl (81-99); Nucleated Red Blood Cells % 0 %; Platelet Count 388 K/mm3 (142-424); Red Blood Count 5.41 M/mm3 (4.20-5.40); Red Cell Distribution Width-SD 40.6 fL; White Blood Count 10.8 K/mm3 (4.8-10.8)
[2025-01-18 19:21] LABS: Alanine Aminotransferase 31 U/L (12-78); Albumin Level 4.5 g/dl (3.5-5.0); Albumin/Globulin Ratio 1.2 (1.1-1.8); Alkaline Phosphatase 67 U/L (38-126); Anion Gap 14.7 mEq/L (5-15); Aspartate Amino Transferase 42 U/L (14-36); Bilirubin,Total 0.7 mg/dl (0.2-1.3); Blood Urea Nitrogen 15 mg/dl (7-17); Calcium 9.0 mg/dl (8.4-10.2); Carbon Dioxide 24 mmol/L (22.0-30.0); Chloride 105 mmol/L (98-107); Creatinine Clearance Estimated 89 mL/min (50-200); Creatinine,Serum 0.90 mg/dl (0.52-1.04); Estimated Glomerular Filt Rate 76 ml/min (>60); GFR (African American) 92 ML/MIN (>60); Globulin 3.8 g/dL (1.3-3.2); Glucose 103 mg/dl (74-100); Potassium 3.7 mmoL/L (3.5-5.1); Sodium 140 mmol/L (136-145); Total Protein,Serum 8.3 g/dl (6.3-8.2)
[2025-01-18 19:25] LABS: D-Dimer 0.35 ug/mL (0.0-0.5)
[2025-01-18 19:26] LABS: HCG Qualitative, Serum Negative (Negative)
[2025-01-18 19:34] LABS: Troponin I < 0.01 ng/ml (0.00-0.034)
--- NOTE | 2025-01-18 21:08 | PC.NURSE ---
Pt brought back from Dr Yariel mckee at bedside, Pt placed on monitor, c/o chest pain that began at 1600 while working here today
--- NOTE | 2025-01-18 21:14 | HMH.EDGENADL ---
Discharge Plan Disposition Patient Disposition: Home, Self-Care Prescriptions Prescriptions: No Action norgestimate-ethinyl estradiol [Sprintec (28)] 0.25-35 mg-mcg tablet 1 tab PO DAILY azithromycin [Zithromax Z-Brodie] 250 mg tablet See Rx Instructions .ROUTE .COMPLEX Qty: 6 0RF Rx Instructions: For 250 mg dose pack: take 500 mg today (day 1), then 250 mg for 4 days (days 2-5) bxercutriltqivh-waxfkrioh-LG [Bromfed DM] 2-30-10 mg/5 mL syrup 5 - 10 ml PO Q4H PRN (Reason: Cough) Qty: 240 0RF albuterol sulfate [Ventolin HFA] 90 mcg/actuation HFA aerosol inhaler 2 puff inhalation QIDP PRN (Reason: Wheezing) Qty: 1 0RF Referrals Follow up/Referrals: Alysha Urbina APRN [Primary Care Provider, Medical] - See instructions Festus Auguste MD [Staff Physician, Cardiology] - See instructions Activity Restrictions/Add. Instructions Additional Instructions/Restrictions: No evidence of acute cardiopulmonary emergency or evidence of endorgan damage from your high blood pressure as discussed. Please keep a blood pressure log and start the blood pressure medication prescribed to you by Florence Urbina and follow-up with our cardiology team as discussed. Return with any significant worsening of her symptoms. Specifically exertional chest pain shortness of breath changes in mental status decreased urine output. Clinical Impressions Clinical Impression: Chest pain, Hypertension Print Language Print Language: Urdu Discharge ED Provider: Nathanael Saldivar General Adult HPI General Chief complaint: Chest Pain Stated complaint: High BP Time Seen by Provider: 01/18/25 21:05 Mode of Arrival: Ambulatory Source of Information: Patient Description of Symptoms (Recalled from ER Triage Doc. by RN): patient presentes to the ED after taking her blood pressure at work and decided to come get evaluated at the ER. 205/133 was the first blood pressure. patient is hypertensive in triage. see vital signs assessment. patient was prescribed hypertensive medications yesterday but hasnt started taking them. patient is unsure what was prescribed. History of Present Illness HPI narrative: Patient is a 24-year-old female with history of PCOS who presents today with chest discomfort and hypertension. States that she has been monitoring her blood pressure and had hypertension went to her primary care doctor yesterday, Florence Urbina, who started her on a blood pressure medication that she has not yet filled or taken. 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 No exertional symptoms no diaphoresis no radiation associated with this no history of any meth or cocaine abuse no history of significant sudden cardiac or horrible family history. Related Data Home Medications ?Medication ?Instructions ?Recorded ?Confirmed norgestimate 0.25 mg-ethinyl 1 tab PO DAILY control 10/05/22 10/21/23 estradiol 0.035 mg tablet (Sprintec (28)) Previous Rx's ?Medication ?Instructions ?Recorded albuterol sulfate 90 mcg/actuation 2 puff inhalation QIDP PRN 10/21/23 aerosol inhaler (Ventolin HFA) Wheezing #1 ea azithromycin 250 mg tablet See Rx Instructions PO .COMPLEX #6 10/21/23 (Zithromax Z-Brodie) tabs uaxeaqpfnssejfd-moirkjyhzdclhuh-DH 5 - 10 ml PO Q4H PRN Cough #240 mL 10/21/23 2 mg-30 mg-10 mg/5 mL oral syrup (Bromfed DM) Allergies Allergy/AdvReac Type Severity Reaction Status Date / Time neomycin (NEOMYCIN) Allergy Unknown Verified 08/10/21 08:36 polymyxin B (POLYMYXIN B) Allergy Unknown Verified 08/10/21 08:36 colistin (From Allergy Verified 08/10/21 08:36 Cortisporin-TC) hydrocortisone (From Allergy Verified 08/10/21 08:36 Cortisporin-TC) Penicillins Allergy Verified 08/10/21 08:36 thonzonium bromide (From Allergy Verified 08/10/21 08:36 Cortisporin-TC) [facility] Disclaimer: The information contained in this section may have been updated after the patient was seen, as this information can be updated by other users. Social History Smoking Status: Never smoker alcohol intake: never substance use type: denies use current occupational status: employed Travel in the last 8 weeks?: None Have you lived/traveled outside US in past 30 days?: No Contact w/someone who lives/traveled outside US past 30 days?: No Exposure to someone with infectious disease in past 14 days?: No Do you have a fever (greater than 100.4 F or 38 C)?: No Have you tested positive for COVID-19?: No Exposed to someone with COVID-19 in past 14 days?: No Do you have a sore throat?: No Do you have a cough?: No Do you have any weakness?: No Do you have any diarrhea?: No Are you experiencing any unusual bleeding?: No Do you have any muscle aches/pain?: No Do you have any abdominal pain?: No Are you experiencing loss of taste or smell?: No Other Medical History Have you received the Flu Vaccine for this season: No Have you received the Pneumonia Vaccine: No ROS Obtained: Yes All systems reviewed & no additional complaints except as documented Physical Exam General General appearance: alert and in no apparent distress Respiratory Respiratory exam: Present normal lung sounds bilaterally; Absent respiratory distress Cardiovascular Cardiovascular exam: Present regular rate; Absent normal rhythm Neurological Exam Neurological exam: Present alert and oriented X3 Medical Decision Making Medical Records Screening: Per USPSTF and CDC recommendations, given the prevalence of disease in our region, it is our hospital?s policy to screen for HIV and viral Hepatitis for all patients aged 18 and over and those with ongoing risk factors. Isaac Inquiry Pt receiving controlled substance: No Vital Signs: 01/18/25 18:42 Temperature 98.2 F Temperature Source Temporal Artery Scan Pulse Rate [Right Radial] 100 H Respiratory Rate 18 Blood Pressure [Left Arm] 193/117 H Blood Pressure Mean [Left Arm] 142 Blood Pressure Source [Left Arm] Automatic Cuff Blood Pressure Position [Left Arm] Sitting 02 Sat by Pulse Oximetry 99 Oxygen Delivery Method Room Air Lab Data Lab results reviewed: Yes I reviewed the patient's lab results. Lab Results 01/18/25 18:57: WBC 10.8, RBC 5.41 H, Hgb 12.0 L, Hct 39.9, MCV 73.8 L, MCH 22.2 L, MCHC 30.1 L, RDW 15.6, Plt Count 388, MPV 9.7, Neut % (Auto) 64.9, Lymph % (Auto) 26.1, [place] % (Auto) 5.7, Eos % (Auto) 2.0, Baso % (Auto) 1.0, Neut # (Auto) 7.0, Lymph # (Auto) 2.8, [place] # (Auto) 0.6, Eos # (Auto) 0.2, Baso # (Auto) 0.1, D-Dimer 0.35, Sodium 140, Potassium 3.7, Chloride 105, Carbon Dioxide 24, Anion Gap 14.7, BUN 15, Creatinine 0.90, Estimated Creat Clear 89, Estimated GFR 76, Est GFR ( Amer) 92, Glucose 103 H, Calcium 9.0, Total Bilirubin 0.7, AST 42 H, ALT 31, Alkaline Phosphatase 67, Troponin I < 0.01, Total Protein 8.3 H, Albumin 4.5, Globulin 3.8 H, Albumin/Globulin Ratio 1.2, Serum HCG, Qual Negative 01/18/25 18:57 01/18/25 18:57 Orders (Tests/Meds): ORDERS Category Date Time Status XR chest portable Stat Exams 01/18/25 18:49 Taken Complete Blood Count Auto Diff Stat Lab 01/18/25 18:57 Completed Comprehensive Metabolic Panel Stat Lab 01/18/25 18:57 Completed D-Dimer Stat Lab 01/18/25 18:57 Completed HCG Qualitative, Serum Stat Lab 01/18/25 18:57 Completed Troponin I Q3H Lab 01/18/25 22:00 Ordered Troponin I Q3H Lab 01/19/25 01:00 Ordered Troponin I Stat Lab 01/18/25 18:57 Completed ECG Data Tracing #1: I reviewed this ECG and interpreted as documented below: Ventricular rate of 102 sinus tachycardia no acute ischemic changes noted normal axis no significant conduction abnormalities noted HEART Score History (anamnesis): Slightly suspicious ECG: Normal Age: <45 years Risk factors: No known risk factors Troponin: </= normal limit HEART Score: 0 Medical Decision Narrative: 24-year-old morbidly obese female with a history of PCOS presented today with chest pain and hypertension. She has nonischemic EKG and undetectably low troponin patient did have mild tachycardia D-dimer was ordered as she could not be ruled out with PERC criteria this was less than 1.0 and from years criteria standpoint no indication for CT PE. No evidence definitively of any endorgan damage patient's very comfortable well-appearing on my exam likely has chronic hypertension. She has been prescribed antihypertensive medication that she will get filled she will keep a blood pressure log follow-up outpatient with cardiology given the severity of her hypertension no indication for hospitalization at the moment or emergent intervention such as IV antihypertensive medications at this not a hypertensive emergency. Functionally without endorgan damage this is objectively asymptomatic hypertension and can be managed outpatient and she is aware of this and agreeable to this plan. Critical Care Critical Care Time Critical Care Time: No
[2025-01-18 21:22] VITALS: BP 193/129; PULSE 92; RESP 16; TEMP 36.8; O2SAT 98
== END 2025-01-18 21:23 | disposition home or self-care (01) ==
PROVIDERS: Emergency Provider Student in an Organized Health Care Education/Training Program; PCP Nurse Practitioner Family
DX: R07.9 Chest pain, unspecified (principal); R00.0 Tachycardia, unspecified; I10 Essential (primary) hypertension; E66.01 Morbid (severe) obesity due to excess calories
CPT/HCPCS: 71045; 80053; 84484; 84703; 85025; 85378; 93005; 99284

== ENCOUNTER 2025-02-05 14:51 | Outpatient (CLI) | payer OTHER, SELFPAY ==
--- NOTE | 2025-02-05 14:30 | CA_ITS ---
APPROVED REPORT EXAM: Comprehensive 2D, Doppler, and color-flow Echocardiogram Octave Board Racker: 74 Ht: 5 ft 5 in Wt: 324lbs BSA: 2.43 BP: 128/74 mmHg Indications: Chest Pain, Fatigue, TDE due to body habitus 2D Dimensions LA Volume 29.20 mL LA Volume Index 11.70 mL/m2 (M/F) 16-34 M-Mode Dimensions RVDd 2.29 cm (0.9-2.6) LA Diam 3.73 cm (1.9-4.0) LVDd 6.36 cm (3.5-5.7) LVDs 4.41 cm (3.5-5.7) IVSd 1.32 cm (0.6-1.1) PWd 0.76 cm (0.6-1.1) EF (Teich) 57.10% FS 30.70% EDV (Teich) 205.60 mL TAPSE 2.39 (<1.7) ESV (Teich) 88.20 mL LV Diastology E Decel Time 240 (160-240 msec) E/A Ratio 1.82 MED A' 8.40 cm/s LAT A' 4.90 cm/s Aortic Valve AO Peak GR. 5.10 mmHg Mitral Valve MV A Velocity 49.0 (40-130 cm/s) E/A Ratio 1.82 Tricuspid Valve TR P. Velocity 103.00 cm/s RAP Estimate 10.00 mmHg RVSP 14.20 mmHg Left Ventricle The left ventricle is normal size. Left ventricular systolic function is normal. The left ventricular ejection fraction is within the normal range. There is normal left ventricular wall thickness. There is normal LV segmental wall motion. The left ventricular diastolic function is normal. LVEF is 55% Right Ventricle The right ventricle is normal size. The right ventricular systolic function is normal. Atria The left atrium size is normal. The right atrium size is normal. There is no color Doppler evidence of interatrial shunt. Aortic Valve The aortic valve opens well. There is no hemodynamically significant aortic valvular stenosis. No aortic regurgitation is present. Mitral Valve The mitral valve is normal in structure. No evidence of mitral valve stenosis. Trace mitral regurgitation is present. Tricuspid Valve The tricuspid valve leaflets are thin and pliable. Trace tricuspid regurgitation. There is insufficient TR jet to estimate RVSP. Pulmonic Valve The pulmonary valve is grossly normal in structure. Trace pulmonic valve regurgitation is present. Great Vessels The aortic root is normal in size. IVC is normal in size and collapses >50% with inspiration. Pericardium There is no pericardial effusion. Other Information Study Quality: Technically Difficult Conclusion Normal biventricular systolic function. No significant valvular stenosis or regurgitation. Electronically signed by : Sonia Gallagher MD 02/06/2025 12:08:07
== END 2025-02-05 23:59 | disposition home or self-care (01) ==
LOC: RAD 14:51
PROVIDERS: PCP Nurse Practitioner Family; Visit Provider Physician Assistant
DX: R07.9 Chest pain, unspecified (principal); I10 Essential (primary) hypertension; R53.83 Other fatigue
CPT/HCPCS: 93306

== ENCOUNTER 2025-02-07 19:53 | Emergency (ER) | payer OTHER, SELFPAY ==
--- NOTE | 2025-02-07 20:44 | CT_ITS ---
PROCEDURE INFORMATION: Exam: CT Left Lower Extremity Without Contrast, Hip Exam date and time: 02/07/2025 11:02 PM Age: 24 years old Clinical indication: Pain; Hip; Left TECHNIQUE: Imaging protocol: CT of the left lower extremity without contrast was performed. Exam focused on the hip. Radiation optimization: All CT scans at this facility use at least one of these dose optimization techniques: automated exposure control; mA and/or kV adjustment per patient size (includes targeted exams where dose is matched to clinical indication); or iterative reconstruction. COMPARISON: CR XR HIP LT 2-3V W/PELVIS 12/31/2024 3:26 PM FINDINGS: Bones/joints: The hip is normally aligned. No fracture, lytic or blastic abnormality. No significant degenerative changes. Soft tissues: Normal. IMPRESSION: Unremarkable left hip.
--- NOTE | 2025-02-07 20:44 | CT_ITS ---
PROCEDURE INFORMATION: Exam: CT Lumbar Spine Without Contrast Exam date and time: 02/07/2025 10:58 PM Age: 24 years old Clinical indication: Low back pain TECHNIQUE: Imaging protocol: Computed tomography of the lumbar spine without contrast. Radiation optimization: All CT scans at this facility use at least one of these dose optimization techniques: automated exposure control; mA and/or kV adjustment per patient size (includes targeted exams where dose is matched to clinical indication); or iterative reconstruction. COMPARISON: CT ABDOMEN PELVIS W CON 10/05/2022 6:57 PM FINDINGS: Bones/joints: No acute fracture. Normal alignment. No significant disc bulge or herniation. No severe spinal canal stenosis. No significant neural foraminal narrowing. Soft tissues: Unremarkable. IMPRESSION: No acute lumbar spine fracture.
[2025-02-07 20:46] VITALS: BP 129/76; PULSE 86; RESP 16; TEMP 36.7; O2SAT 98; BMI 53.2
[2025-02-07 21:00] VITALS: BP 143/78; PULSE 89; O2SAT 96
--- NOTE | 2025-02-07 21:03 | ED_ITS ---
<Statement entered by Babak Anderson MD - 02/08/25 02:15> I was consulted by the EMANUEL, and we discussed the complexity of the problems being addressed. I approve the treatment and management plan for this patient's care in the emergency department, thus performing a substantive portion of the medical decision making. Patient CT imaging was interpreted by me personally. I see no evidence of acute fracture or dislocation, however final radiology reads are pending at this time. Patient's care was transferred to the oncoming physician, Dr. Driscoll, pending completion of her workup and ultimate disposition. Babak Anderson MD Discharge Plan Disposition Patient Disposition: Home, Self-Care Prescriptions Prescriptions: New methocarbamol 1,000 mg tablet 1,000 mg PO QID 3 Days Qty: 12 0RF ketorolac 10 mg tablet 10 mg PO Q8H PRN (Reason: pain) 5 Days Qty: 20 0RF No Action chlorthalidone 25 mg tablet 25 mg PO DAILY Qty: 30 2RF nitroglycerin 0.4 mg tablet, sublingual 0.4 mg sublingual Q5M Qty: 20 2RF Rx Instructions: do not exceed 3 doses per episode valsartan 160 mg tablet 160 mg PO DAILY Qty: 30 2RF propranolol 40 mg tablet 40 mg PO BID Qty: 60 2RF Referrals Follow up/Referrals: Alysha Urbina APRN [Primary Care Provider, Medical] - See instructions Edgar Broussard DO [Staff Physician, Orthopedics] - See instructions Activity Restrictions/Add. Instructions Additional Instructions/Restrictions: Please follow-up with your primary care provider. Please return to the emergency department if you develop any new or worsening symptoms or become concerned for your health. Clinical Impressions Clinical Impression: Acute pain of left hip, Bilateral sacroiliitis Print Language Print Language: Irish Discharge ED Provider: Montez Driscoll General Adult HPI <Shirlene Izquierdo (ED), [place] - Last Filed: 02/07/25 22:31> General Chief complaint: Extremity Injury, Lower Stated complaint: left hip pain Time Seen by Provider: 02/07/25 20:39 Mode of Arrival: Ambulatory Source of Information: Patient Description of Symptoms (Recalled from ER Triage Doc. by RN): Pt presents with c/o left hip pain that has been chronic for 1 year with worsening today. Pt denies any injuries, denies numbness. Report pain raidates down her leg with intermittent pain to lower back. Denies any other symptoms or complaints. History of Present Illness HPI narrative: 24-year-old female presents to the ED today with complaint of left hip pain that has been chronic for a year. But she was sitting at work and twisted wrong and now her hip is hurting on the left side. She says that she has seen her PCP for this but she has had pain intermittently since and she has also had blood pressure problems so they have been focusing on her blood pressure problems most recently. She says her left hip has hurt since she moved funny earlier today. She has had an x-ray done a couple of weeks ago but she has not had a follow-up since. She has pain down her left leg. She has no numbness or tingling just pain. She also has some pain in the left low back. Related Data Previous Rx's ?Medication ?Instructions ?Recorded chlorthalidone 25 mg tablet 25 mg PO DAILY #30 tabs nitroglycerin 0.4 mg sublingual 0.4 mg sublingual Q5M #20 tabs 01/21/25 tablet propranolol 40 mg tablet 40 mg PO BID #60 tabs valsartan 160 mg tablet 160 mg PO DAILY #30 tabs 01/07 ketorolac 10 mg tablet 10 mg PO Q8H PRN pain 5 days #20 02/07/25 tabs methocarbamol 1,000 mg tablet 1,000 mg PO QID 72 hours #12 tabs 02/07/25 Allergies Allergy/AdvReac Type Severity Reaction Status Date / Time hydrocortisone (From Allergy Other Verified 02/07/25 14:51 Cortisporin-TC) Latex, Natural Rubber Allergy Rash Verified 02/07/25 14:52 Penicillins Allergy Other Verified 02/07/25 14:51 thonzonium bromide (From Allergy Other Verified 02/07/25 14:51 Cortisporin-TC) [facility] <Shirlene Izquierdo (ED), [facility] - Last Filed: 02/07/25 22:31> [facility] Disclaimer: The information contained in this section may have been updated after the patient was seen, as this information can be updated by other users. Social History Smoking Status: Never smoker alcohol intake: never substance use type: denies use current occupational status: employed Travel in the last 8 weeks?: None Have you lived/traveled outside US in past 30 days?: No Contact w/someone who lives/traveled outside US past 30 days?: No Exposure to someone with infectious disease in past 14 days?: No Do you have a fever (greater than 100.4 F or 38 C)?: No Have you tested positive for COVID-19?: No Exposed to someone with COVID-19 in past 14 days?: No Do you have a sore throat?: No Do you have a cough?: No Do you have any weakness?: No Do you have any diarrhea?: No Are you experiencing any unusual bleeding?: No Do you have any muscle aches/pain?: No Do you have any abdominal pain?: No Are you experiencing loss of taste or smell?: No Other Medical History Have you received the Flu Vaccine for this season: No Have you received the Pneumonia Vaccine: No <Shirlene Izquierdo (ED), [employer] [facility] - Last Filed: 02/07/25 22:31> ROS Obtained: Yes Systems reviewed as appropriate & no additional complaints except as documented Constitutional Constitutional: Reports as per HPI Physical Exam <Shirlene Izquierdo (ED), [employer] [facility] - Last Filed: 02/07/25 22:31> General General appearance: alert Head Head exam: normocephalic Eye Eye exam: Present PERRL and EOMI ENT ENT exam: Present normal oropharynx and mucous membranes moist Neck Neck exam: Present full ROM and trachea midline Respiratory Respiratory exam: Present normal lung sounds bilaterally Cardiovascular Cardiovascular exam: Present regular rate, normal rhythm, normal heart sounds, +S1 and +S2 Abdominal Exam Abdominal exam: Present soft and normal bowel sounds Extremities Exam Extremities exam: Present normal inspection, full ROM and tenderness Neurological Exam Neurological exam: Present alert and oriented X3 Skin Skin exam: Present warm, dry and intact Medical Decision Making <Shirlene Izquierdo (ED), [employer] [facility] - Last Filed: 02/07/25 22:31> Medical Records Screening: Per USPSTF and CDC recommendations, given the prevalence of disease in our region, it is our hospital?s policy to screen for HIV and viral Hepatitis for all patients aged 18 and over and those with ongoing risk factors. Isaac Inquiry Pt receiving controlled substance: No Isaac was queried for this patient: No Vital Signs: 02/07/25 20:46 02/07/25 21:00 02/07/25 21:30 Temperature 98.1 F Temperature Source Oral Pulse Rate 89 79 Pulse Rate [Radial] 86 Respiratory Rate 16 Blood Pressure 143/78 H 116/65 Blood Pressure [Right Arm] 129/76 Blood Pressure Mean [Right Arm] 93 Blood Pressure Position Blood Pressure Position [Right Arm] Sitting 02 Sat by Pulse Oximetry 98 96 97 Oxygen Delivery Method Room Air 02/07/25 21:31 02/07/25 22:00 02/07/25 22:30 Temperature Temperature Source Pulse Rate 77 77 80 Pulse Rate [Radial] Respiratory Rate Blood Pressure 116/65 128/62 128/66 Blood Pressure [Right Arm] Blood Pressure Mean [Right Arm] Blood Pressure Position Blood Pressure Position [Right Arm] 02 Sat by Pulse Oximetry 98 99 98 Oxygen Delivery Method 02/08/25 00:01 02/08/25 00:31 02/08/25 00:56 Temperature 98.1 F Temperature Source Oral Pulse Rate 72 72 72 Pulse Rate [Radial] Respiratory Rate 16 Blood Pressure 121/58 L 128/59 L 128/59 L Blood Pressure [Right Arm] Blood Pressure Mean [Right Arm] Blood Pressure Position Sitting Blood Pressure Position [Right Arm] 02 Sat by Pulse Oximetry 98 96 Oxygen Delivery Method Room Air Lab Data Lab Results 02/07/25 22:25: Urine Color Yellow, Urine Appearance Clear, Urine pH 7.5, Ur Specific Crane 1.015, Urine Protein Negative, Urine Glucose (UA) Negative, Urine Ketones Negative, Urine Blood 3+ A, Urine Nitrate Negative, Urine Bilirubin Negative, Urine Urobilinogen 0.2, Ur Leukocyte Esterase Negative, Urine RBC 50-100, Urine WBC 5-10, Ur Squamous Epith Cells 10-20, Urine Bacteria 3+, Urine Mucus 1+, Urine HCG, Qual Negative Orders (Tests/Meds): ED MEDICATIONS Discontinued Medications Generic Name Dose Route Start Last Admin Trade Name Freq PRN Reason Stop Dose Admin Hydrocodone Bitart/Acetaminophen 2 tab 02/07/25 20:44 02/07/25 21:16 Hydrocodone/Apap 5/325 Mg Tablet PO 02/07/25 20:45 2 tab ONCE ONE Administration Ketorolac Tromethamine 30 mg 02/07/25 20:44 02/07/25 21:16 Ketorolac 30mg/Ml Vial IV 02/07/25 20:45 30 mg ONCE ONE Administration Orphenadrine Citrate 60 mg 02/07/25 20:44 02/07/25 21:16 Orphenadrine Citrate 60mg/2ml Vial IV 02/07/25 20:45 60 mg ONCE ONE Administration ORDERS Category Date Time Status CT hip LT wo con Stat Cat Scan 02/07/25 20:[address] lumbar spine wo con Stat Cat Scan 02/07/25 20:44 Completed Urinalysis-Acute [Urinalysis and Microscopic] Stat Lab 02/07/25 22:25 Completed Urine , HCG Qual. Stat Lab 02/07/25 22:25 Completed Urine Culture Stat Micro 02/07/25 22:25 Received Medical Decision Narrative: patient is a 24-year-old female presenting to the emergency department for evaluation of left hip pain. Patient is hemodynamically stable and nontoxic- appearing upon arrival, afebrile. Differential diagnosis includes left hip pain, bursitis, tendinitis tendinosis among others. Workup will be conducted with hematologic labs, specific imaging. Initial inventions include analgesics. We will CT hip and lumbar spine. <Montez Driscoll MD - Last Filed: 02/08/25 01:15> Vital Signs: 02/07/25 20:46 02/07/25 21:00 02/07/25 21:30 Temperature 98.1 F Temperature Source Oral Pulse Rate 89 79 Pulse Rate [Radial] 86 Respiratory Rate 16 Blood Pressure 143/78 H 116/65 Blood Pressure [Right Arm] 129/76 Blood Pressure Mean [Right Arm] 93 Blood Pressure Position Blood Pressure Position [Right Arm] Sitting 02 Sat by Pulse Oximetry 98 96 97 Oxygen Delivery Method Room Air 02/07/25 21:31 02/07/25 22:00 02/07/25 22:30 Temperature Temperature Source Pulse Rate 77 77 80 Pulse Rate [Radial] Respiratory Rate Blood Pressure 116/65 128/62 128/66 Blood Pressure [Right Arm] Blood Pressure Mean [Right Arm] Blood Pressure Position Blood Pressure Position [Right Arm] 02 Sat by Pulse Oximetry 98 99 98 Oxygen Delivery Method 02/08/25 00:01 02/08/25 00:31 02/08/25 00:56 Temperature 98.1 F Temperature Source Oral Pulse Rate 72 72 72 Pulse Rate [Radial] Respiratory Rate 16 Blood Pressure 121/58 L 128/59 L 128/59 L Blood Pressure [Right Arm] Blood Pressure Mean [Right Arm] Blood Pressure Position Sitting Blood Pressure Position [Right Arm] 02 Sat by Pulse Oximetry 98 96 Oxygen Delivery Method Room Air Lab Data Lab Results 02/07/25 22:25: Urine Color Yellow, Urine Appearance Clear, Urine pH 7.5, Ur Specific Crane 1.015, Urine Protein Negative, Urine Glucose (UA) Negative, Urine Ketones Negative, Urine Blood 3+ A, Urine Nitrate Negative, Urine Bilirubin Negative, Urine Urobilinogen 0.2, Ur Leukocyte Esterase Negative, Urine RBC 50-100, Urine WBC 5-10, Ur Squamous Epith Cells 10-20, Urine Bacteria 3+, Urine Mucus 1+, Urine HCG, Qual Negative Orders (Tests/Meds): ED MEDICATIONS Discontinued Medications Generic Name Dose Route Start Last Admin Trade Name Freq PRN Reason Stop Dose Admin Hydrocodone Bitart/Acetaminophen 2 tab 02/07/25 20:44 02/07/25 21:16 Hydrocodone/Apap 5/325 Mg Tablet PO 02/07/25 20:45 2 tab ONCE ONE Administration Ketorolac Tromethamine 30 mg 02/07/25 20:44 02/07/25 21:16 Ketorolac 30mg/Ml Vial IV 02/07/25 20:45 30 mg ONCE ONE Administration Orphenadrine Citrate 60 mg 02/07/25 20:44 02/07/25 21:16 Orphenadrine Citrate 60mg/2ml Vial IV 02/07/25 20:45 60 mg ONCE ONE Administration ORDERS Category Date Time Status CT hip LT wo con Stat Cat Scan 02/07/25 20:[address] lumbar spine wo con Stat Cat Scan 02/07/25 20:44 Completed Urinalysis-Acute [Urinalysis and Microscopic] Stat Lab 02/07/25 22:25 Completed Urine , HCG Qual. Stat Lab 02/07/25 22:25 Completed Urine Culture Stat Micro 02/07/25 22:25 Received Medical Decision Narrative: patient is a 24-year-old female presenting to the emergency department for evaluation of left hip pain. Patient is hemodynamically stable and nontoxic- appearing upon arrival, afebrile. Differential diagnosis includes left hip pain, bursitis, tendinitis tendinosis among others. Workup will be conducted with hematologic labs, specific imaging. Initial inventions include analgesics. We will CT hip and lumbar spine. Yamila AMANDA: I assumed care of the patient at the time of handoff from the prior provider. On reassessment, labs independently interpreted by me showed numerous RBCs in the urine, patient is currently menstruating. CT imaging independently interpreted by me shows sacroiliitis, shows no evidence of abnormality within the acetabulum or femur. I do not suspect that the sacroiliitis is the cause of her acute pain, though may be contributing to her chronic pain. I considered obtaining MRI for occult fracture, but patient has no significant trauma or risk factors for fracture and she has been able to ambulate on it. I discussed her findings with her and she is discharged in stable condition. Return precautions given. Critical Care <Shirlene Izquierdo (ED), [employer] [facility] - Last Filed: 02/07/25 22:31> Critical Care Time Critical Care Time: No
[2025-02-07] MEDS: HYDROCODONE/APAP 5/325 MG TABLET 2 TAB PO (21:16)
[2025-02-07] MEDS: KETOROLAC 30MG/ML VIAL 30 MG IV (21:16)
[2025-02-07] MEDS: ORPHENADRINE CITRATE 60MG/2ML VIAL 60 MG IV (21:16)
[2025-02-07 21:30] VITALS: BP 116/65; PULSE 79; O2SAT 97
[2025-02-07 21:31] VITALS: BP 116/65; PULSE 77; O2SAT 98
[2025-02-07 22:00] VITALS: BP 128/62; PULSE 77; O2SAT 99
[2025-02-07 22:29] LABS: Microscopic, Urine URINE MICROSCOPIC (MICROSCOPIC)
[2025-02-07 22:30] VITALS: BP 128/66; PULSE 80; O2SAT 98
[2025-02-07 22:31] LABS: Bilirubin,Urine Negative (Negative); Color,Urine YELLOW (Yellow); Glucose,Urine (UA) Negative (Negative); Ketones,Urine Negative (Negative); Leukocyte Esterase,Urine Negative (Negative); PH,Urine 7.5 (5.0-8.5); Protein,Urine Negative (Negative); Specific Gravity, Urine 1.015 (1.005-1.030); Urobilinogen,Urine 0.2 EU/dl (0.2)
[2025-02-07 22:38] LABS: Urine Pregnancy, HCG Qual. Negative (Negative)
[2025-02-07 23:05] LABS: Bacteria,Urine 3+ /lpf; Mucus,Urine 1+ /lpf; RBC,Urine 50-100 #/hpf (0-3)
[2025-02-08 00:01] VITALS: BP 121/58; PULSE 72; O2SAT 98
[2025-02-08 00:31] VITALS: BP 128/59; PULSE 72; O2SAT 96
[2025-02-08 00:56] VITALS: BP 128/59; PULSE 72; RESP 16; TEMP 36.7; O2SAT 96
--- NOTE | 2025-02-08 08:52 | PC.NURSE ---
Clinic pharmacy called to verify pt received torodol IV prior to filling the script.
== END 2025-02-08 01:03 | disposition home or self-care (01) ==
PROVIDERS: Nurse Practitioner; Emergency Provider Emergency Medicine; PCP Nurse Practitioner Family
DX: M25.552 Pain in left hip (principal); M46.1 Sacroiliitis, not elsewhere classified; I10 Essential (primary) hypertension; E66.01 Morbid (severe) obesity due to excess calories
CPT/HCPCS: 72131; 73700; 81001; 81025; 87086; 96374; 96375; 99284; 99285; J1885; J2360

== ENCOUNTER 2025-02-20 14:30 | Outpatient (CLI) | payer OTHER, SELFPAY ==
[2025-02-20 15:13] LABS: Coronavirus 19, PCR Not Detected (NotDetected); Influenza A, PCR Not Detected (NotDetected); Influenza B, PCR Not Detected (NotDetected)
== END 2025-02-20 23:59 | disposition home or self-care (01) ==
LOC: LAB.DROPOF 02-21 23:54
PROVIDERS: PCP Student in an Organized Health Care Education/Training Program; Visit Provider Student in an Organized Health Care Education/Training Program
DX: J06.9 Acute upper respiratory infection, unspecified (principal)
CPT/HCPCS: 87631

== ENCOUNTER 2025-03-06 12:11 | Outpatient (CLI) | payer OTHER, SELFPAY ==
--- NOTE | 2025-03-06 | CA_ITS ---
APPROVED REPORT Exam: Pharmacologic Technologist: Cleopatra Rodrigez Stress Nurse: Ligia ELDER, RN Ht: 5 ft 5 in Wt: 324 lbs BSA: 2.43 m2 HR: 83 bpm BP: 160/97 mmHg Indications: Chest pain, Fatigue, Dizziness, Hypertension. Stress Test Details Test: Lexiscan HR Resting HR: 83 bpm Max Heart Rate (APMHR): 194.519107 bpm Max HR Achieved: 116 bpm Target HR (85% APMHR): 164.238960 bpm % of APMHR: 59.79 Recovery HR: 101 bpm BP Resting BP: 160.0/97.0 mmHg Max BP: 169.0/104.0 mmHg Recovery BP: 158.0/95.0 mmHg ECG Resting ECG: Sinus rhythm Stress ECG Conclusion Lungs clear to auscultation prior to test start. Symptoms: Dizziness Arrhythmias/Ectopy: None ST-T Changes: Less than 0.[address] segment changes. Conclusion: Nondiagnostic ECG/Lexiscan Electronically signed by : Sonia Gallagher MD 03/07/2025 12:50:39
--- NOTE | 2025-03-06 12:00 | NM_ITS ---
APPROVED REPORT Exam: Nuclear Stress Test Indication: Chest pain, HTN, Family history Patient Location: Outpatient Stress Tech: Cleopatra Rodrigez NM Tech:Katy Sarah, ARRT, RT (R)(N) Ht: 5 ft 5 in Wt: 320 lbs Bra Size: 46D HR: 83 bpm BP: 160/97 mmHg BSA: 2.42 m2 TID: 1.16 BMI: 53.2 History: Chest pain, HTN, Family history Procedure: Patient received 0.4 mg of intravenous Lexiscan, resting heart rate 83 bpm, resting blood pressure 160/97 mmHg, with Lexiscan maximum heart rate achieved was 116 bpm which is % of the maximum predicted heart rate and blood pressure was 169/104 mmHg. With Lexiscan, patient denied any complaint of chest pain. Cardiac Stress and Resting SPECT Images: Cardiac Stress and Resting SPECT images were obtained using technetium 99m Myoview 32.5 mCi stress and 9.65 mCi at rest. Technically difficult study. Significant soft tissue overlap with the cardiac borders. This may affect diagnostic interpretation of the study findings. Resting and stress imaging in supine and prone positions demonstrate a medium sized, moderate, partially reversible perfusion defect in the anterior and anterolateral LV ni. Gated imaging demonstrates mild reduction global LV systolic function. LVEF is calculated at 42%. Conclusion: Technically difficult study. This may affect the diagnostic interpretation of the study findings. Medium sized, moderate, partially reversible perfusion defect in the anterior and anterolateral LV ni. Findings are suggestive of reversible ischemia. Gated imaging demonstrates mild reduction global LV systolic function. LVEF is calculated at 42%. Correlation of LV systolic function with limited TTE + ultrasound enhancing agent is suggested. In the setting of young age and technically difficult nuclear stress test, further evaluation noninvasively with CCTA may be suggested prior to proceeding with invasive coronary angiography. Electronically signed by : Sonia Gallagher MD 03/07/2025 12:48:38
[2025-03-06 13:34] VITALS: BP 160/97; PULSE 83; RESP 14
== END 2025-03-06 23:59 | disposition home or self-care (01) ==
LOC: RAD 12:12
PROVIDERS: PCP Nurse Practitioner Family; Visit Provider Physician Assistant
DX: I11.9 Hypertensive heart disease without heart failure (principal); R94.39 Abnormal result of other cardiovascular function study; R42 Dizziness and giddiness
CPT/HCPCS: 78452; 93017; 93018

== ENCOUNTER 2025-03-08 09:06 | Outpatient (CLI) | payer OTHER, SELFPAY ==
[2025-03-08 09:33] VITALS: BMI 53.2
[2025-03-08 09:48] VITALS: BP 149/90; PULSE 90; RESP 20; TEMP 36.2; O2SAT 97
--- NOTE | 2025-03-08 10:00 | CT_ITS ---
APPROVED REPORT Restuarant Crew Worker: CLINICAL INDICATION Chest Pain TECHNIQUE Image Acquisition: A 128 slice MDCT scanner ([employer] Triggertrapa View) was used for data acquisition. A noncontrast coronary calcium scan was performed. A CT attenuation threshold of 130 Hounsfield units (HU) was used for the detection of calcium in contiguous voxels of 1 sq mm in area to be counted as individual lesions. Bolus tracking in the ascending aorta with a threshold of 180 HU was performed. Immediately afterwards, ECG synchronized cardiac CT was then performed from the cardiac base to apex using retrospective gating with ECG tube current modulation. A total of 85 mL of Isovue 370 mg/mL contrast medium was administered at 5 mL/sec followed by a saline flush using a biphasic injection protocol. A tube voltage of 120 KVp was used. The patient received the following medications prior to the cardiac CT. 0.8 mg of sublingual nitroglycerin The average heart rate at the time of acquisition was 60 bpm and regular. Image Reconstruction Transaxial images were reconstructed at 0.67 mm slide thickness. Data was reviewed interactively on an advanced workstation capable of 2 and 3-dimensional displays in all conventional reconstruction formats, including multiplanar reformations, maximum intensity projections, curved multiplanar reformations, and volume rendered reconstructions. When applicable, selected routine images describing the relevant coronary anatomy and pathology were saved and sent to PACS. Complications None Technical Quality Overall image quality was good. Coronary artery opacification was adequate. Total DLP (Dose-Length Product) is 1227.1 mGy-cm. The reported value represents the total of one or more individual components during the CT acquisition of this date and at this time, and as such, the same value may appear in more than one CT report depending on the interpreting/reporting physicians. COMPARISON None FINDINGS CT Coronary Calcium Scoring LMA (Left Main Artery) = 0 LAD (Left Anterior Descending) = 0 LCX (Left Coronary Circumflex) = 0 RCA (Right Coronary Artery) = 0 Total Calcium Score = 0 using the AJ-130 method. The interpretation of the calcium heart score is based on the following continuum*: 0 = no calcified plaque detected (risk of coronary artery disease is very low ??? less than 5%) 1-10 = calcium detected in extremely minimal levels (risk of coronary diseases is still low ??? less than 10%) 11-100 = mild levels of plaque detected with certainty (mild or minimal narrowing of heart arteries is likely) 101-400 = definite,at least moderate levels of plaque detected (relatively high risk of a heart attack within 3-5 years) >401-999 = extensive levels of plaque detected (high risk of heart attack, high levels of vascular disease are present, high likelihood of at least one significant coronary narrowing) *The calcium heart score quantifies the burden of coronary calcification/plaque in the coronary arteries. The calcium heart score is not able to evaluate the presence or burden of non-calcified (i.e. soft) plaque. There is no identifiable calcification in the aortic valve, mitral annulus or mitral valve, pericardium, or myocardium. Coronary CT Angiography The coronary arterial system is right dominant. Quantitative Stenosis Grading: Left Main (LM): The left main originates normally from the left sinus of Valsalva. The LM bifurcates into the left anterior descending artery and left circumflex artery. The LM is patent with no evidence of atherosclerosis. Left Anterior Descending (LAD) and Diagonal Branches: The LAD gives off 3 diagonal branch(es). The LAD and its branches are patent with no evidence of atherosclerosis. There is no evidence of LAD-myocardial bridge. Left Circumflex (LCX) and Obtuse Marginals (OM): The LCX gives off 1 Obtuse Marginal (OM) branch(es). The LCX and its branches are patent with no evidence of atherosclerosis. Right Coronary Artery (RCA): The RCA originates normally from the right sinus of Valsalva. The RCA gives off a posterior descending artery (PDA) and posterolateral (PL) branches. The RCA and its branches are patent with no evidence of atherosclerosis. Non-Coronary Cardiac Findings: Analysis of the left ventricular (LV) structure and function was performed after 3-D reconstruction of the LV from axial images, with user-corrected automatic contouring for assessment of LV volumes and user-defined reconstruction from oblique planes for measurement of 3-D cardiac structure and function. -The left ventricle systolic function is normal. -There is no left atrial appendage filling defect. Two right pulmonary veins and two left pulmonary veins drain normally into the left atrium. -No pericardial thickening or calcification. -Central and branch pulmonary arteries in the [id number] are unremarkable. -Thoracic aorta within the visualized thoracic aortic-branches in the [id number] is unremarkable. Extracardiac Structures No significant extra-cardiac findings. Note, however, that this study is focused on the cardiac findings. IMPRESSION -Absence of coronary calcification with an Agatston score = 0 using the AJ-130 method. -No evidence of significant flow-limiting atherosclerosis of the coronary arteries. -CAD-RADS 0. Management recommendations per ACC/AHA guidelines*, as clinically appropriate. *Recommendations: CAD RADS 0: Reassurance. Consider non-atherosclerotic causes of chest pain. CAD RADS 1: Consider non-atherosclerotic causes of chest pain. Consider preventive therapy and risk factor modification. CAD RADS 2: Consider non-atherosclerotic causes of chest pain. Consider preventive therapy and risk factor modification, particularly for patients with nonobstructive plaque in multiple segments. CAD RADS 3: Consider further functional testing. Consider symptom-guided anti-ischemic and preventive pharmacotherapy as well as risk factor modification per published guideline statements. CAD RADS 4A: Consider further functional testing or invasive coronary angiography with revascularization per published guideline statements. Consider symptom-guided anti-ischemic and preventive pharmacotherapy as well as risk factor modification per published guideline statements. CAD RADS 4B: Invasive coronary angiography recommended with revascularization per published guideline statements. Consider symptom-guided anti-ischemic and preventive pharmacotherapy as well as risk factor modification per published guideline statements. CAD RADS 5: Consider invasive angiography and/or viability assessment with revascularization per published guideline statements. Consider symptom-guided anti-ischemic and preventive pharmacotherapy as well as risk factor modification per published guideline statements. CRITICAL RESULT None COMMUNICATION Per this written report The coronary and cardiac findings of this CCTA were reviewed, reported, and signed by Medhat Gallagher MD (Bolt Machine Operator) Conclusion Electronically signed by : Sonia Gallagher MD 03/12/2025 12:20:17
[2025-03-08] MEDS: METOPROLOL TARTRATE 50MG TABLET PO ×2 (10:12→11:20)
[2025-03-08] MEDS: IVABRADINE HCL 7.5MG TABLET PO (10:14)
[2025-03-08 10:19] LABS: Chloride 99 mmol/L (98-107)
[2025-03-08 10:20] LABS: Potassium 3.6 mmoL/L (3.5-5.1); Sodium 136 mmol/L (136-145)
[2025-03-08 10:23] LABS: Anion Gap 11.6 mEq/L (5-15); Blood Urea Nitrogen 15 mg/dl (7-17); Calcium 9.2 mg/dl (8.4-10.2); Carbon Dioxide 29 mmol/L (22.0-30.0); Creatinine Clearance Estimated 85 mL/min (50-200); Creatinine,Serum 0.90 mg/dl (0.52-1.04); Estimated Glomerular Filt Rate 76 ml/min (>60); GFR (African American) 92 ML/MIN (>60); Glucose 133 mg/dl (74-100)
[2025-03-08 10:30] LABS: HCG Qualitative, Serum Negative (Negative)
[2025-03-08 11:18] VITALS: BP 124/54; PULSE 73; O2SAT 96
[2025-03-08 12:00] VITALS: BP 149/87; PULSE 69; O2SAT 98
[2025-03-08] MEDS: NITROGLYCERIN 0.4MG SL TABLET SL (12:00)
[2025-03-08 12:03] VITALS: BP 139/82; PULSE 61
[2025-03-08 12:06] VITALS: BP 125/73; PULSE 59; O2SAT 97
[2025-03-08] MEDS: 0.9 % SODIUM CHLORIDE 50 ML VIAL IV (12:11)
[2025-03-08] MEDS: IOPAMIDOL-370 (76%);100ML BOTTLE 85 ML IV (12:11)
[2025-03-08] MEDS: SODIUM CHLORIDE 0.9% 10ML SYR (RAD ONLY) 10 ML IV (12:11)
[2025-03-08 12:18] VITALS: BP 133/68; PULSE 64; O2SAT 97
== END 2025-03-08 12:18 | disposition home or self-care (01) ==
PROVIDERS: PCP Nurse Practitioner Family; Visit Provider Physician Assistant
DX: I10 Essential (primary) hypertension (principal); R07.9 Chest pain, unspecified
CPT/HCPCS: 75574; 80048; 84703; Q9967

== ENCOUNTER 2025-03-16 19:47 | Outpatient (CLI) | payer OTHER, SELFPAY ==
--- OUTSIDE RECORDS SUMMARY | 2025-03-16 19:50 | XMS_ITS ---
Author Organization Unknown ENCOUNTERS Encounter Performer Location Date Diagnosis Diagnosis Status Emergency Montez Driscoll [facility] [address] [facility] [address] [place] [address] [phone] [place] Pre Admit Babak Anderson [facility] [address] [facility] [address] [place] [address] [id number] Pre Admit Nathanael Jackson [facility] [address] [facility] [address] [place] [address] [phone] Emergency [facility] [address] [facility] [address] [place] [address] [phone] [place] [facility] [address] [facility] [address] [place] [address] [phone] Emergency [facility] [address] [facility] [address] [place] [address] [phone] [place] Emergency Maynor Lepe [facility] [address] [facility] [address] [place] [address] [phone] [place] Emergency [facility] [address] [facility] [address] [place] [address] [phone] [place] Emergency Manuel [facility]claughlin [facility] [address] [facility] [address] [place] [address] [phone] [place] Emergency [facility] [address] [facility] [address] [place] [address] [phone] [place] Emergency [facility] [address] [facility] [address] [place] [address] [phone] [place] *Note: Encounters from your own facility or health system may be excluded. Allergies, Adverse Reactions, Alerts Allergen Type Severity Identification Date hydrocortisone drug allergy 0 20171115 neomycin drug allergy 0 20171115 Latex, Natural Rubber drug allergy 1 25 Penicillins drug allergy 0 20171115 thonzonium bromide drug allergy 0 20171115 colistin drug allergy 0 20171115 polymyxin B drug allergy 0 20171115 Medications Name Date Quantity Days Supplied GPI Number
[2025-03-16 21:23] LABS: Hepatitis C Ab Qual. W/ RFX NEGATIVE (Negative)
[2025-03-19 04:14] LABS: Hepatitis B Surface Antigen Negative (Negative)
== END 2025-03-16 23:59 | disposition home or self-care (01) ==
LOC: LAB 19:49
PROVIDERS: PCP Obstetrics & Gynecology; Visit Provider Obstetrics & Gynecology
DX: Z11.59 Encounter for screening for other viral diseases (principal); N92.6 Irregular menstruation, unspecified
CPT/HCPCS: 86803; 87340; 87389